=== PATIENT | female | born 1985 | race African-American/Black ===

== ENCOUNTER → 2016-08-13 | Emergency (ER) | payer OTHER ==
[2016-08-13 13:03] VITALS: BP 107/61; PULSE 73; TEMP 98.4; BMI 28.1
--- NOTE | 2016-08-13 14:45 | PDOC ---
*Physical Exam - Vital Signs Last Vital Signs Temp Pulse Resp BP Pulse Ox 98.4 F 73 18 107/61 100 08/13/16 13:00 08/13/16 13:00 08/13/16 13:00 08/13/16 13:00 08/13/16 13:00 - Physical Exam Comments: 08/13/16 14:45 [facility] *DC/Admit/Observation/Transfer Diagnosis at time of Disposition: Patient left before evaluation by physician - Referrals Referrals: Eliza Walker MD [Primary Care Provider] -
--- NOTE | 2016-08-13 15:13 | PDOC ---
History of Present Illness - General Chief Complaint: Vaginal Bleeding Stated Complaint: (8 WKS ) BLEEDING Time Seen by Provider: 08/13/16 13:45 Past History - Past Medical History Allergies/Adverse Reactions: Allergies Allergy/AdvReac Type Severity Reaction Status Date / Time No Known Allergies Allergy Verified 08/13/16 12:59 Asthma: Yes - Psycho/Social/Smoking Cessation Hx Anxiety: No Suicidal Ideation: No Smoking History: Never smoked Information on smoking cessation initiated: No Hx Alcohol Use: No Drug/Substance Use Hx: No Substance Use Type: None *Physical Exam - Vital Signs Last Vital Signs Temp Pulse Resp BP Pulse Ox 98.4 F 73 18 107/61 100 08/13/16 13:00 08/13/16 13:00 08/13/16 13:00 08/13/16 13:00 08/13/16 13:00 ED Treatment Course - RADIOLOGY Radiology Studies Ordered: Category Date Time Status <14WKS US [US] Stat Ultrasound 08/13/16 14:19 Ordered Medical Decision Making - Medical Decision Making 08/13/16 15:33 I initially eyeballed patient when I went into room 5 and told to change into a gown since she was not in a gown and when I went back after placing orders, patient was unable to be located in the ER, waiting area, bathroom, ER ramp and will be assumed [facility]. *DC/Admit/Observation/Transfer Diagnosis at time of Disposition: Patient left before evaluation by physician - Referrals Referrals: Eliza Walker MD [Primary Care Provider] -
== END | disposition left against medical advice (07) ==
LOC: JER 12:55
DX: Z53.21 Procedure and treatment not carried out due to patient leaving prior to being seen by health care provider (principal)
CPT/HCPCS: 99281-25

== ENCOUNTER 2019-04-01 00:46 | Emergency (ER) | payer SELFPAY ==
[2019-04-01 00:55] VITALS: BP 139/88; PULSE 100; TEMP 98.2; BMI 24.3
--- NOTE | 2019-04-01 01:14 | PDOC ---
History of Present Illness - General Chief Complaint: Respiratory Stated Complaint: DIFF BREATHING Time Seen by Provider: 04/01/19 00:49 - History of Present Illness Initial Comments: 04/01/19 01:11 This 33-year-old woman with a history of exercise-induced asthma presents with difficulty breathing after attending a [employer] class in a gym today. Patient started her gym membership today; she states that she did not have any cough/ wheezing/fever earlier today. She participated in the entire class but began to feel short of breath at the conclusion of it. Last asthmatic attack was approximately 4 months ago, also triggered by exercise. Prior to that, she had not had a episode of wheezing for approximately 3 years. No recent need for steroid treatment of her asthma. She currently does not have an albuterol inhaler. History of hospitalization for her asthma many years ago; none recently No history of smoking; patient's partner smokes No daily alcohol/no recreational drug use No daily medication; no other significant medical history No known allergies Past History - Past Medical History Allergies/Adverse Reactions: Allergies Allergy/AdvReac Type Severity Reaction Status Date / Time No Known Allergies Allergy Verified 08/13/16 12:59 Home Medications: Ambulatory Orders Albuterol Sulfate Inhaler - [Ventolin HFA Inhaler -] 2 inh PO Q4H #1 inh Asthma: Yes COPD: No - Psycho Social/Smoking Cessation Hx Smoking History: Unknown if ever smoked Have you smoked in the past 12 months: No Number of Cigarettes Smoked Daily: 0 Information on smoking cessation initiated: No Hx Alcohol Use: No Drug/Substance Use Hx: No Substance Use Type: None Review of Systems - Review of Systems Able to Perform ROS?: Yes Comments:: 12 point review of systems is negative except for what is noted in the history of present illness *Physical Exam - Vital Signs Last Vital Signs Temp Pulse Resp BP Pulse Ox 98.2 F 100 H 18 139/88 100 04/01/19 00:52 04/01/19 00:52 04/01/19 00:52 04/01/19 00:52 04/01/19 00:52 - Physical Exam Comments: GENERAL: HEAD: Normal with no signs of trauma. EYES: PERRLA, EOMI, sclera anicteric, conjunctiva clear. ENT: Ears normal, nares patent, oropharynx clear without exudates. Dry mucous membranes. NECK: Normal range of motion, supple without lymphadenopathy, JVD, or masses. LUNGS: Breath sounds equal, clear to auscultation bilaterally. No wheezes, and no crackles. HEART:Regular rate and rhythm, normal S1 and S2 without murmur, rub or gallop. ABDOMEN:.normal bowel sounds No guarding,tenderness or rebound.No masses No distention. EXTREMITIES: Normal range of motion, no edema. No clubbing or cyanosis. No erythema, or tenderness. NEUROLOGICAL: Cranial nerves II through XII grossly intact. Normal speech. No focal neurological deficits. MUSCULOSKELETAL: Back non-tender to palpation, no CVA tenderness SKIN: Warm, Dry, normal turgor, no rashes or lesions noted. Medical Decision Making - Medical Decision Making 04/01/19 01:16 Patient has clear breath sounds with good air exchange after 1 Duoneb nebulizer treatment She continued to be comfortable without recurrence of wheezing or shortness of breath after 45 minutes observation time. The patient will be discharged with prescription for albuterol inhaler to be used as needed for wheezing or shortness of breath. If she has persistent difficulty breathing or wheezing, she should return to the emergency room. She should plan on following up with her general doctor within the next 5 days Discharge - Discharge Information Problems reviewed: Yes Clinical Impression/Diagnosis: Exercise-induced asthma Condition: Improved Disposition: HOME - Additional Discharge Information Prescriptions: Albuterol Sulfate Inhaler - [Ventolin HFA Inhaler -] 2 inh PO Q4H #1 inh - Follow up/Referral - Patient Discharge Instructions Patient Printed Discharge Instructions: DI for Asthma -- Adult Additional Instructions: Albuterol inhaler: 2 puffs every 4 hours as needed for wheezing/shortness of breath Return to ER if you have persistent shortness of breath/wheezing or if you develop cough/fever Follow-up with your doctor within the next 5 to 7 days - Post Discharge Activity
[2019-04-01] MEDS ORDERED: ALBUTEROL SO4 2.5/IPRATROPIUM 0.5 INH SOL 3 ML VIAL.NEB. NEB ONE (01:17)
== END 2019-04-01 01:45 | disposition home or self-care (01) ==
LOC: FER 00:46
PROC: 3E0F7GC Introduction of Other Therapeutic Substance into Respiratory Tract, Via Natural or Artificial Opening (ICD-10-PCS; principal; 2019-04-01)
DX: J45.990 Exercise induced bronchospasm (principal)
CPT/HCPCS: 99282-25

== ENCOUNTER 2020-01-22 16:20 | Emergency (ER) | payer OTHER ==
[2020-01-22 16:34] VITALS: BP 132/78; PULSE 89; TEMP 98.4; BMI 28.0
[2020-01-22] MEDS ORDERED: SODIUM CHLORIDE 1,000 ML IV STA (16:44)
[2020-01-22] MEDS ORDERED: ONDANSETRON 4 MG/2 ML VIAL IVPUSH ONE ×2 (16:44→18:28)
[2020-01-22] MEDS ORDERED: ONDANSETRON 4 MG/2 ML VIAL ONE ×2 (16:47→18:39)
--- NOTE | 2020-01-22 16:56 | PDOC ---
History of Present Illness - General Chief Complaint: Nausea Stated Complaint: NAUSEA, 8 WKS Time Seen by Provider: 01/22/20 16:34 History Source: Patient Exam Limitations: No Limitations - History of Present Illness Initial Comments: 01/22/20 19:04 8 week pmh asthma presents to the ED for persistent vomiting over the last 3 days. Pt reports profuse vomiting, unable to keep any food or liquids down. Pt did not have a significant vomiting issue with her first preg which was full term. Denies F/C, abdominal pain, back pain, CP, SOB, changes in bowel or bladder habits. Pt admits to vaginal spotting and 1 episode of streak of blood in the vomit. Past History - Medical History Allergies/Adverse Reactions: Allergies Allergy/AdvReac Type Severity Reaction Status Date / Time raspberry Allergy Unknown Verified 01/22/20 16:26 Home Medications: Ambulatory Orders Albuterol Sulfate Inhaler - [Ventolin HFA Inhaler -] 2 inh PO Q4H #1 inh 04/01/19 Asthma: Yes COPD: No - Reproductive History Is Patient Now?: Yes (#): 2 Para: 1 - Psycho-Social/Smoking History Smoking History: Never smoked Have you smoked in the past 12 months: No Number of Cigarettes Smoked Daily: 0 - Substance Abuse Hx (Audit-C & DAST Scrn) How often the patient has a drink containing alcohol: Monthly or less Score: In Men: 4 or > Positive; In Women: 3 or > Positive: 1 Screen Result (Pos requires Nsg. Audit-10AR): Negative In the last yr the pt used illegal drug/Rx for NonMed reason: No Score: Yes response is considered Positive: 0 Screen Result (Positive result requires Nsg. DAST-10): Negative Review of Systems - Review of Systems Constitutional: Yes: See HPI Respiratory: Yes: See HPI Cardiac (ROS): Yes: See HPI : Yes: See HPI Musculoskeletal: Yes: See HPI Integumentary: Yes: See HPI Neurological: Yes: See HPI *Physical Exam - Vital Signs Last Vital Signs Temp Pulse Resp BP Pulse Ox 98.4 F 89 17 132/78 100 01/22/20 16:25 01/22/20 16:25 01/22/20 16:25 01/22/20 16:25 01/22/20 16:25 - Physical Exam General Appearance: Yes: Nourished, Appropriately Dressed. No: Apparent Distress HEENT: positive: EOMI Neck: positive: Supple. negative: Carotid bruit Respiratory/Chest: positive: Lungs Clear, Normal Breath Sounds. negative: Res piratory Distress, Accessory Muscle Use, Rapid RR, Crackles, Rales, Rhonchi, Wheezing Cardiovascular: positive: Regular Rhythm, Regular Rate, S1, S2. negative: Edema, JVD, Murmur Vascular Pulses: Dorsalis-Pedis (R): 4+, Doralis-Pedis (L): 4+ Female Pelvic Exam: positive: normal external exam, cervical os closed, other (no visualized bleeding on exam). negative: vaginal bleeding Gastrointestinal/Abdominal: positive: Flat, Soft. negative: Pulsatile Mass, Protuberent, Distended, Guarding, Rebound, Tenderness Musculoskeletal: negative: CVA Tenderness Extremity: positive: Normal Capillary Refill, Normal Inspection, Normal Range of Motion Integumentary: positive: Normal Color, Dry, Warm Neurologic: positive: Fully Oriented, Alert, Normal Mood/Affect, Normal Response ED Treatment Course - LABORATORY CBC & Chemistry Diagram: 01/22/20 17:00 01/22/20 17:00 Medical Decision Making - Medical Decision Making 01/22/20 19:09 8 week pmh asthma presents to the ED for persistent vomiting over the last 3 days. Pt reports profuse vomiting, unable to keep any food or liquids down. Pt did not have a significant vomiting issue with her first preg which was full term. Denies F/C, abdominal pain, back pain, CP, SOB, changes in bowel or bladder habits. Pt admits to vaginal spotting and 1 episode of streak of blood in the vomit. Vitals stable Bedside US trans abdominal shows IUP 164 FHR Pt states her OB is up state and she has not had any US as yet, one is scheduled for week 10 of Given 1L NS and 2L D5NS and 8 mg Zofran without improvement of symptoms Pending labs and pt s/o to night team for likely admission for hyperemesis Discharge - Discharge Information Problems reviewed: Yes Clinical Impression/Diagnosis: Hyperemesis arising during Condition: Good - Follow up/Referral Referrals: Jocy Adams MD [Primary Care Provider] - - Patient Discharge Instructions - Post Discharge Activity
[2020-01-22] MEDS ORDERED: DEXTROSE 5%-NORMAL SALINE 1,000 ML IV ONE ×2 (17:20→19:05)
--- NOTE | 2020-01-22 17:21 | PDOC ---
Documentation entered by Drake Rosenthal SCRIBE, acting as scribe for Janessa Pichardo MD. Janessa Pichardo MD: This documentation has been prepared by the marianaibe, Drake Rosenthal SCRIBE, under my direction and personally reviewed by me in its entirety. I confirm that the documentation accurately reflects all work, treatment, procedures, and medical decision making performed by me. Attending Attestation - Resident Resident Name: Aidan Armenta - ED Attending Attestation I have performed the following: I have examined & evaluated the patient, The case was reviewed & discussed with the resident, I agree w/resident's findings & plan, Exceptions are as noted - HPI HPI: 01/22/20 17:11 The patient is a year old 8 week female with a significant past medical history of exercise-induced asthma who presents to the emergency department for evaluation of emesis that began three days ago. The patient reports persistent nausea for the past 8 weeks that has worsened over the past three days. She endorses spots of blood when she wiped herself after using the bathroom yesterday. The patient denies chest/abdominal/back pain, cough, and shortness of breath. Denies fever, chills,and/or any symptoms. Denies any other symptoms. Allergies: raspberries Social Hx: None reported Surgical Hx: None reported PCP: Dr. Adams - Physicial Exam PE: 01/22/20 17:18 General: non-toxic appearing HEENT: NCAT Abdomen: soft, nt, no rebound, no guarding, no appreciable masses - Medical Decision Making 01/22/20 17:19 34 yo F with likely hyperemesis, patient also noticed spot blood when wiping herself yesterday but otherwise no bleeding, no cramping, no clots so will check Rh. Plan: -labs -urine -IVF -zofran -reassess This clinical encounter is taking place during a federal and state health care emergency attributable to the novel Vargas Virus pandemic. The [employer] of the Department of Health and Human Services has declared, pursuant to the Public Health Service Act 319F-3 (42 U.S[place]C. 247d-6d), that a covered persons activities related to medical countermeasures against COVID-19 will be immune from liability under Federal and State law. Pt. with persistent vomiting. Given additional 4mg zofran and D5NS. Patient signed out to incoming night attending. Discharge - Discharge Information Problems reviewed: Yes Clinical Impression/Diagnosis: Hyperemesis arising during Condition: Improved Disposition: HOME - Additional Discharge Information Prescriptions: Ondansetron [Zofran *Odt*] 4 mg SL BID PRN #6 od.tablet PRN Reason: Nausea - Follow up/Referral Referrals: Jocy Adams MD [Primary Care Provider] - - Patient Discharge Instructions Patient Printed Discharge Instructions: Hyperemesis Gravidarum Additional Instructions: Rest; clear liquids Advance diet cautiously Zofran ODT 4 mg up to twice a day as needed for severe, persistent nausea Return to ER if you have persistent vomiting, weakness, abdominal pain Contact your social sciences instructor regarding today's ER visit as discussed; follow-up as arranged - Post Discharge Activity
[2020-01-22 17:22] LABS: BASO % 0.3 % (0-2.0); EOS % 0.4 % (0-4.5); HEMATOCRIT 38.3 % (32.4-45.2); MCH 31.6 pg (25.7-33.7); MCHC 33.9 g/dl (32.0-36.0); MEAN CELL VOLUME 93.4 fl (80-96); MEAN PLT VOLUME 7.7 fl (7.5-11.1); MONO % 4.9 % (3.8-10.2); NEUT % 81.4 % (42.8-82.8); PLATELET COUNT 268 K/MM3 (134-434); RDW 13.1 % (11.6-15.6); WHITE BLOOD COUNT 11.5 K/mm3 (4.0-10.8)
[2020-01-22 17:30] LABS: ALBUMIN 4.3 g/dl (3.4-5.0); BILIRUBIN,TOTAL 0.7 mg/dl (0.2-1); CALCIUM 9.5 mg/dl (8.5-10); CREATININE 0.7 mg/dl (0.55-1.3); POTASSIUM 3.8 mmol/L (3.5-5.1); TOT PROT 7.5 g/dl (6.4-8.2)
[2020-01-22 18:51] LABS: EPITHELIAL CELLS MANY /hpf
--- NOTE | 2020-01-22 19:43 | PDOC ---
*Physical Exam - Vital Signs Last Vital Signs Temp Pulse Resp BP Pulse Ox 98.4 F 89 17 132/78 100 01/22/20 16:25 01/22/20 16:25 01/22/20 16:25 01/22/20 16:25 01/22/20 16:25 ED Treatment Course - LABORATORY CBC & Chemistry Diagram: 01/22/20 17:00 01/22/20 17:00 - ADDITIONAL ORDERS Additional order review: Laboratory Results 01/22/20 01/22/20 01/22/20 18:15 17:10 17:00 Sodium Potassium Chloride Carbon Dioxide Anion Gap BUN Creatinine Est GFR (CKD-EPI)AfAm Est GFR (CKD-EPI)NonAf Random Glucose Calcium Total Bilirubin AST ALT Alkaline Phosphatase Total Protein Albumin Beta HCG, Quant Urine Color Yellow Urine Appearance Slightly Urine pH 7.0 Urine Protein Negative Urine Glucose (UA) 1+ H Urine Ketones 3+ H Urine Blood 1+ H Urine Nitrite Negative Urine Bilirubin Negative Urine Urobilinogen 0.2 Ur Leukocyte Esterase Negative Urine RBC 2-5 Urine WBC 0-2 Ur Transition Epith Cell Many Blood Type O POSITIVE O POSITIVE Antibody Screen Negative 01/22/20 17:00 Sodium 135 L Potassium 3.8 Chloride 102 Carbon Dioxide 21 Anion Gap 12 BUN 6.0 L Creatinine 0.7 Est GFR (CKD-EPI)AfAm 132.87 Est GFR (CKD-EPI)NonAf 114.64 Random Glucose 83 Calcium 9.5 Total Bilirubin 0.7 AST 20 ALT 18 Alkaline Phosphatase 63 Total Protein 7.5 Albumin 4.3 Beta HCG, Quant 78951.2 Urine Color Urine Appearance Urine pH Urine Protein Urine Glucose (UA) Urine Ketones Urine Blood Urine Nitrite Urine Bilirubin Urine Urobilinogen Ur Leukocyte Esterase Urine RBC Urine WBC Ur Transition Epith Cell Blood Type Antibody Screen 01/22/20 17:00 RBC 4.10 MCV 93.4 MCHC 33.9 RDW 13.1 MPV 7.7 Neutrophils % 81.4 Lymphocytes % 13.0 Monocytes % 4.9 Eosinophils % 0.4 Basophils % 0.3 - Medications Given in the ED: ED Medications Discontinued Medications Generic Name Dose Route Start Last Admin Trade Name Freq PRN Reason Stop Dose Admin Sodium Chloride 1,000 mls @ 1,000 mls/hr 01/22/20 16:44 01/22/20 17:00 Normal Saline - IV 01/22/20 17:43 1,000 mls/hr ASDIR STA Administration Dextrose/Sodium Chloride 1,000 mls @ 1,000 mls/hr 01/22/20 17:20 01/22/20 17:46 D5-Ns - IV 01/22/20 18:19 1,000 mls/hr ONCE ONE Administration Ondansetron HCl 4 mg 01/22/20 16:44 01/22/20 17:00 Zofran Injection IVPUSH 01/22/20 16:45 4 mg ONCE ONE Administration Ondansetron HCl 4 mg 01/22/20 18:28 01/22/20 18:45 Zofran Injection IVPUSH 01/22/20 18:29 4 mg ONCE ONE Administration ED Progress Note - Progress Note Progress Note: Care of this patient received from After 1 L normal saline IV, 2 L D5 NS and 8 mg Zofran IV, the patient feels significantly improved. Marked weakness and lightheadedness that she presented with has resolved and she feels she can be discharged home. Prescription for Zofran ODT 4 mg (#6) sent to her pharmacy. Patient will maintain clear liquids and advance diet very cautiously. She should contact her color buffer to discuss today's ER visit and follow-up as arranged. She should return to the emergency room if she has persistent vomiting resulting in weakness/lightheadedness Discharge - Discharge Information Problems reviewed: Yes Clinical Impression/Diagnosis: Hyperemesis arising during Condition: Improved Disposition: HOME - Additional Discharge Information Prescriptions: Ondansetron [Zofran *Odt*] 4 mg SL BID PRN #6 od.tablet PRN Reason: Nausea - Follow up/Referral Referrals: Jocy Adams MD [Primary Care Provider] - - Patient Discharge Instructions Patient Printed Discharge Instructions: Hyperemesis Gravidarum Additional Instructions: Rest; clear liquids Advance diet cautiously Zofran ODT 4 mg up to twice a day as needed for severe, persistent nausea Return to ER if you have persistent vomiting, weakness, abdominal pain Contact your color buffer regarding today's ER visit as discussed; follow-up as arranged - Post Discharge Activity
== END 2020-01-22 20:32 | disposition home or self-care (01) ==
LOC: FER 16:20
PROC: 3E013VG Introduction of Insulin into Subcutaneous Tissue, Percutaneous Approach (ICD-10-PCS; principal; 2020-01-22)
PROC: 3E033GC Introduction of Other Therapeutic Substance into Peripheral Vein, Percutaneous Approach (ICD-10-PCS; 2020-01-22)
PROC: 3E0337Z Introduction of Electrolytic and Water Balance Substance into Peripheral Vein, Percutaneous Approach (ICD-10-PCS; 2020-01-22)
DX: O21.0 Mild hyperemesis gravidarum (principal); Z3A.08 8 weeks gestation of pregnancy
CPT/HCPCS: 36415; 80053; 81003; 81015; 84702; 85025; 86850; 86900; 86901; 87086; 99284-25

== ENCOUNTER 2020-08-03 19:13 | Emergency (ER) | payer OTHER ==
[2020-08-03 19:19] VITALS: BP 111/67; PULSE 84; TEMP 99.5; BMI 23.5
[2020-08-03] MEDS ORDERED: ONDANSETRON 4 MG/2 ML VIAL IVPUSH ONE (20:18)
[2020-08-03] MEDS ORDERED: SODIUM CHLORIDE 1,000 ML IV ONE (20:18)
[2020-08-03] MEDS ORDERED: ONDANSETRON 4 MG/2 ML VIAL ONE (20:31)
[2020-08-03 20:59] LABS: BASO % 0.4 % (0-2.0); EOS % 0.6 % (0-4.5); HEMATOCRIT 38.5 % (32.4-45.2); HEMOGLOBIN 12.7 GM/dl (10.7-15.3); LYMPH % 13.9 % (8-40); MCH 30.8 pg (25.7-33.7); MCHC 33.1 g/dl (32.0-36.0); MEAN PLT VOLUME 7.6 fl (7.5-11.1); MONO % 4.8 % (3.8-10.2); NEUT % 80.3 % (42.8-82.8); PLATELET COUNT 222 K/MM3 (134-434); RBC 4.14 M/mm3 (3.60-5.2); RDW 13.1 % (11.6-15.6); WHITE BLOOD COUNT 11.1 K/mm3 (4.0-10.8)
[2020-08-03 21:09] LABS: ALBUMIN 4.1 g/dl (3.4-5.0); BILIRUBIN,TOTAL 0.9 mg/dl (0.2-1); CALCIUM 9.3 mg/dl (8.5-10); CREATININE 0.7 mg/dl (0.55-1.3); POTASSIUM 4.2 mmol/L (3.5-5.1); TOT PROT 7.3 g/dl (6.4-8.2)
[2020-08-03] MEDS ORDERED: ACETAMINOPHEN 1000 MG/100 ML VIAL (NON FORMULARY) IVPB ONE (21:10)
[2020-08-03] MEDS ORDERED: ACETAMINOPHEN INJECTION 100 ML IVPB ONE (21:23)
[2020-08-03] MEDS ORDERED: ONDANSETRON *ODT* 4 MG TABLET SL ONE (22:10)
[2020-08-03] MEDS ORDERED: ONDANSETRON *ODT* 4 MG TABLET ONE (22:11)
== END 2020-08-03 22:21 | disposition home or self-care (01) ==
LOC: FER 19:13
PROC: 3E033NZ Introduction of Analgesics, Hypnotics, Sedatives into Peripheral Vein, Percutaneous Approach (ICD-10-PCS; principal; 2020-08-03)
PROC: 3E033GC Introduction of Other Therapeutic Substance into Peripheral Vein, Percutaneous Approach (ICD-10-PCS; 2020-08-03)
PROC: 3E0337Z Introduction of Electrolytic and Water Balance Substance into Peripheral Vein, Percutaneous Approach (ICD-10-PCS; 2020-08-03)
DX: O21.9 Vomiting of pregnancy, unspecified (principal)
CPT/HCPCS: 36415; 76705-TC; 76817-TC; 80053; 83690; 84702; 85025; 99285-25; C9803; Q0162; U0003

== ENCOUNTER 2021-05-13 10:53 | Emergency (ER) | payer OTHER ==
[2021-05-13 11:11] VITALS: BP 129/79; PULSE 82; TEMP 100; BMI 27.3
[2021-05-13] MEDS ORDERED: ACETAMINOPHEN 325 MG TABLET (FP) PO ONE (11:28)
[2021-05-13] MEDS ORDERED: ONDANSETRON *ODT* 4 MG TABLET SL ONE (11:28)
[2021-05-13] MEDS ORDERED: ACETAMINOPHEN 325 MG TABLET (FP) ONE (11:38)
[2021-05-13] MEDS ORDERED: ONDANSETRON *ODT* 4 MG TABLET ONE (11:38)
[2021-05-13 12:24] LABS: HCG,QUALITATIVE URINE Negative
[2021-05-13 12:52] LABS: EPITHELIAL CELLS MODERATE /hpf
[2021-05-15 13:07] LABS: SARS-CoV-2 NAA Detected (Not Detected)
== END 2021-05-13 13:46 | disposition home or self-care (01) ==
LOC: FER 10:53
DX: R11.2 Nausea with vomiting, unspecified (principal); R19.7 Diarrhea, unspecified
CPT/HCPCS: 81003; 81015; 84703; 87086; 99283-25; C9803; Q0162; U0003; U0005

== ENCOUNTER 2021-07-03 08:09 | Emergency (ER) | payer OTHER ==
[2021-07-03 08:20] VITALS: BP 126/80; PULSE 99; TEMP 100.1; BMI 27.3
[2021-07-03] MEDS ORDERED: ALBUTEROL SO4 2.5/IPRATROPIUM 0.5 INH SOL 3 ML VIAL.NEB. NEB ONE (08:26)
[2021-07-03] MEDS ORDERED: predniSONE 20 MG TABLET (UD) ONE (08:26)
[2021-07-03] MEDS ORDERED: ACETAMINOPHEN 500 MG TABLET (FP) PO ONE (08:27)
[2021-07-03] MEDS ORDERED: predniSONE 20 MG TABLET (UD) PO ONE (08:27)
[2021-07-03] MEDS ORDERED: ACETAMINOPHEN 500 MG TABLET (FP) ONE (08:30)
[2021-07-03] MEDS: ALBUTEROL SO4 2.5/IPRATROPIUM 0.5 INH SOL 3 ML VIAL.NEB. NEB SCH ×2 (08:35→09:08)
[2021-07-04 13:08] LABS: SARS-CoV-2 NAA Not Detected (Not Detected)
== END 2021-07-03 10:58 | disposition home or self-care (01) ==
LOC: FER 08:09
PROC: 3E0F7GC Introduction of Other Therapeutic Substance into Respiratory Tract, Via Natural or Artificial Opening (ICD-10-PCS; principal; 2021-07-03)
DX: J45.901 Unspecified asthma with (acute) exacerbation (principal); B34.9 Viral infection, unspecified
CPT/HCPCS: 87804; 94640; 99284-25; C9803; U0003; U0005

== ENCOUNTER 2021-07-23 18:37 | Emergency (ER) | payer OTHER ==
[2021-07-23 18:56] LABS: HCG,QUALITATIVE URINE Negative
[2021-07-23 19:03] VITALS: BP 120/70; BMI 28.8
[2021-07-23] MEDS ORDERED: SODIUM CHLORIDE 2,504 ML IV ONE (19:26)
[2021-07-23] MEDS ORDERED: CEFTRIAXONE 1 GM in DEXTROSE 5%-WATER - 50 ML IVPB ONE (19:27)
[2021-07-23] MEDS ORDERED: ACETAMINOPHEN 325 MG TABLET (FP) PO ONE (19:28)
[2021-07-23] MEDS ORDERED: KETOROLAC TROMETHAMINE 30 MG/1 ML VIAL IVPUSH ONE (19:42)
[2021-07-23] MEDS ORDERED: KETOROLAC TROMETHAMINE 30 MG/1 ML VIAL ONE (20:14)
[2021-07-23] MEDS ORDERED: ACETAMINOPHEN 325 MG TABLET (FP) ONE (20:14)
[2021-07-23] MEDS ORDERED: cefTRIAXone SODIUM 1 GM VIAL ONE (20:14)
[2021-07-23 20:23] LABS: INR 1.17 (0.83-1.09); PROTHROMBIN TIME (PATIENT) 13.5 SEC (9.7-13.0)
[2021-07-23 20:24] LABS: ALBUMIN 4.4 g/dl (3.4-5.0); BILIRUBIN,TOTAL 0.7 mg/dl (0.2-1); CALCIUM 9.5 mg/dl (8.5-10); CREATININE 0.8 mg/dl (0.55-1.3); TOT PROT 7.5 g/dl (6.4-8.2)
[2021-07-23 20:25] LABS: ACTIVATED PTT 32.5 SECONDS (25.2-36.5)
[2021-07-23] MEDS ORDERED: ALBUTEROL SO4 2.5/IPRATROPIUM 0.5 INH SOL 3 ML VIAL.NEB. NEB ONE ×2 (20:53)
[2021-07-23 21:06] LABS: VENOUS BASE EXCESS -3.9 mmol/L (-2-2); VENOUS O2 SATURATION 30.4 % (70-80); VENOUS PH 7.355 (7.310-7.410)
[2021-07-23 21:30] LABS: BASO % 0.2 % (0-2.0); EOS % 0.4 % (0-4.5); HEMATOCRIT 38.8 % (32.4-45.2); LYMPH % 4.8 % (8-40); MCH 30.6 pg (25.7-33.7); MCHC 33.4 g/dl (32.0-36.0); MEAN CELL VOLUME 91.5 fl (80-96); MEAN PLT VOLUME 7.9 fl (7.5-11.1); MONO % 10.8 % (3.8-10.2); NEUT % 83.8 % (42.8-82.8); PLATELET COUNT 192 10^3/uL (134-434); RBC 4.24 M/mm3 (3.60-5.2); RDW 14.6 % (11.6-15.6); WHITE BLOOD COUNT 8.2 K/mm3 (4.0-10.0)
[2021-07-23 21:45] LABS: LACTIC ACID 2.2 mmol/L (0.4-2.0)
[2021-07-23 22:40] VITALS: PULSE 110; TEMP 99.2
[2021-07-23] MEDS ORDERED: ALBUTEROL SO4 HFA INHALER IH ONE ×2 (22:44→22:45)
[2021-07-25 10:08] LABS: SARS-CoV-2 NAA Not Detected (Not Detected)
== END 2021-07-23 22:45 | disposition home or self-care (01) ==
LOC: FER 18:37
PROC: 3E0F7GC Introduction of Other Therapeutic Substance into Respiratory Tract, Via Natural or Artificial Opening (ICD-10-PCS; principal; 2021-07-23)
PROC: 3E03329 Introduction of Other Anti-infective into Peripheral Vein, Percutaneous Approach (ICD-10-PCS; 2021-07-23)
PROC: 3E033GC Introduction of Other Therapeutic Substance into Peripheral Vein, Percutaneous Approach (ICD-10-PCS; 2021-07-23)
PROC: 3E0337Z Introduction of Electrolytic and Water Balance Substance into Peripheral Vein, Percutaneous Approach (ICD-10-PCS; 2021-07-23)
DX: J09.X2 Influenza due to identified novel influenza A virus with other respiratory manifestations (principal)
CPT/HCPCS: 36415; 71045-TC-FY; 80053; 81003; 81015; 82553; 82803; 83605; 84703; 85025; 85610; 85730; 86850; 86900; 86901; 87040; 87086; 87804; 93005; 99291; C9803; U0003; U0005

== ENCOUNTER 2021-09-30 02:35 | Emergency (ER) | payer OTHER ==
[2021-09-30 02:53] VITALS: BP 119/74; PULSE 88; TEMP 97.6; BMI 26.6
[2021-09-30] MEDS ORDERED: ACETAMINOPHEN 325 MG TABLET (FP) PO ONE (02:55)
[2021-09-30] MEDS ORDERED: ACETAMINOPHEN INJECTION 100 ML IVPB ONE (03:07)
[2021-09-30 03:24] LABS: BASO % 0.5 % (0-2.0); EOS % 2.4 % (0-4.5); HEMATOCRIT 35.6 % (32.4-45.2); HEMOGLOBIN 11.9 GM/dL (10.7-15.3); LYMPH % 22.7 % (8-40); MCH 30.9 pg (25.7-33.7); MCHC 33.5 g/dl (32.0-36.0); MEAN CELL VOLUME 92.3 fl (80-96); MEAN PLT VOLUME 6.9 fl (7.5-11.1); MONO % 8.9 % (3.8-10.2); NEUT % 65.5 % (42.8-82.8); PLATELET COUNT 205 10^3/uL (134-434); RBC 3.85 M/mm3 (3.60-5.2); RDW 14.4 % (11.6-15.6)
[2021-09-30 03:27] LABS: EPI CELLS 35 /uL (0-25.1); HYALINE CASTS 2 /uL (0-3.1); URINE APPEARANCE CLEAR; URINE BACTERIA 1167 /uL (0-1359); URINE BILIRUBIN NEGATIVE (NEGATIVE); URINE COLOR YELLOW; URINE GLUCOSE (UA) NEGATIVE (NEGATIVE); URINE KETONE TRACE (NEGATIVE); URINE LEUK ESTERASE NEGATIVE (NEGATIVE); URINE NITRITE NEGATIVE (NEGATIVE); URINE PROTEIN NEGATIVE (NEGATIVE); URINE RBC 22 /uL (0-23.9); URINE WBC 26 /uL (0-25.8)
[2021-09-30 03:47] LABS: ALBUMIN 3.6 g/dl (3.4-5.0); BLOOD UREA NITROGEN 12.1 mg/dL (7-18); CALCIUM 8.8 mg/dL (8.5-10.1)
[2021-09-30 03:50] LABS: CREATININE 0.8 mg/dL (0.55-1.3)
[2021-09-30 03:52] LABS: BILIRUBIN,TOTAL 0.2 mg/dL (0.2-1); TOT PROT 6.7 g/dl (6.4-8.2)
== END 2021-09-30 05:54 | disposition home or self-care (01) ==
LOC: JER 02:35
DX: O20.8 Other hemorrhage in early pregnancy (principal); Z3A.08 8 weeks gestation of pregnancy
CPT/HCPCS: 36415; 76817-TC; 80053; 81003; 84702; 85025; 86850; 86900; 86901; 87086; 99284-25